=== PATIENT | male | born 1965 | race Hispanic/Latino ===

== ENCOUNTER 2021-03-13 14:20 | Emergency (ER) | payer SELFPAY ==
[2021-03-13 15:20] LABS: Basophils % (Auto) 0.7 % (0.0-1.8); Eosinophils # (Auto) 0.1 K/mm3 (0.0-0.4); Eosinophils % (Auto) 1.7 % (0.0-4.3); Hematocrit 43.1 % (35.5-45.6); Hemoglobin 14.3 gm/dl (11.8-15.2); Lymphocytes # (Auto) 1.5 K/mm3 (1.2-5.4); Mean Corpuscular HGB Conc 33 % (32-34); Mean Corpuscular Volume 83 fl (84-94); Monocytes # (Auto) 0.4 K/mm3 (0.0-0.8); Monocytes % (Auto) 5.3 % (0.0-7.3); Platelet Count 206 K/mm3 (140-440); Red Blood Count 5.17 M/mm3 (3.65-5.03); Red Cell Distribution Width 15.7 % (13.2-15.2)
[2021-03-13 15:41] LABS: Alanine Aminotransferase 16 units/L (7-56); Albumin 3.8 g/dL (3.9-5); Blood Urea Nitrogen 11 mg/dL (9-20); Calcium 8.9 mg/dL (8.4-10.2); Hemolysis Index 53
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
[2021-03-13 15:44] LABS: BUN/Creatinine Ratio 22
--- NOTE | 2021-03-13 16:04 | XRay Report ---
XR chest routine 2V INDICATION / CLINICAL INFORMATION: chest pain. COMPARISON: None available. FINDINGS: SUPPORT DEVICES: None. HEART /PULMONARY VASCULATURE: Median sternotomy changes related to CABG. The heart is not enlarged. N o pulmonary vasculature congestion. LUNGS / PLEURA: No significant pulmonary or pleural abnormality. No pneumothorax. ADDITIONAL FINDINGS: No significant additional findings. IMPRESSION: 1. No acute findings. Signer Name: Delfino Xie MD Signed: 03/13/2021 4:00 PM Workstation Name: [id number]
[2021-03-13] MEDS ORDERED: SODIUM CHLORIDE 0.9% 1000 ML 1,000 ML IV ONE (16:50)
[2021-03-13] MEDS ORDERED: ASPIRIN 81 MG TAB CHEW PO ONE (17:29)
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
[2021-03-13 18:35] VITALS: BP 131/75
--- NOTE | 2021-03-14 17:31 | Electrocardiograph Report ---
[facility] Test Date: 2021-03-13 Test Time: 16:03:36 Pat Name: DORI CULVER Department: Room: Gender: M Business Systems Developer: REINA : 1965 Requested By: CONSTANTIN DOWELL Order Number: [id number] Reading MD: Heidy Cabrera Measurements Intervals [place] Rate: 76 P: 43 KS: 166 QRS: 69 QRSD: 98 T: 45 QT: 407 QTc: 456 Interpretive Statements Sinus rhythm Probable left atrial enlargement Borderline inferior Q waves No previous ECG available for comparison Electronically Signed On 03-14-2021 17:31:08 EST by Heidy Cabrera
== END 2021-03-13 19:47 | disposition home or self-care (01) ==
LOC: ED 14:20
DX: R07.9 Chest pain, unspecified (principal); I10 Essential (primary) hypertension; E11.9 Type 2 diabetes mellitus without complications; F20.9 Schizophrenia, unspecified; F17.200 Nicotine dependence, unspecified, uncomplicated; F41.9 Anxiety disorder, unspecified; F43.9 Reaction to severe stress, unspecified
CPT/HCPCS: 36415; 71046; 80053; 82962; 84484; 85025; 93005; 96360; 99284; J7030; Q0162